=== PATIENT | female | born 1970 | race Hispanic/Latino ===

== ENCOUNTER 2021-04-25 07:39 | Day surgery (SDC) | payer BC ==
[2021-04-25] MEDS ORDERED: NA CHLORIDE 0.9% 250 ML ONE ×2 (08:23→14:10)
[2021-04-25 09:35] VITALS: O2SAT 100
[2021-04-25 09:39] VITALS: BMI 21.9
[2021-04-25] MEDS ORDERED: ACETAMINOPHEN 325 MG TABLET ONE (14:10)
[2021-04-25 15:55] VITALS: BP 122/51; TEMP 100.4
[2021-04-25 15:55] LABS: Absolute Lymphocytes (CBC) 0.6 K/uL (0.7-4.9); Basophils % 0.5 % (0-1.3); Hematocrit 28.2 % (36.0-45.0); Lymphocytes % 17.4 % (15.3-44.8); MPV 7.6 fL (7.6-11.3)
[2021-04-25 16:20] LABS: Dohle Bodies PRESENT; Platelet Estimate ADEQ; White Blood Cell Scan OK (OK)
[2021-04-25 16:21] LABS: Blood Morphology Comment NOT SEEN (NOT SEEN)
== END 2021-04-25 15:55 | disposition home or self-care (01) ==
LOC: DS 07:39
PROVIDERS: ATTEND Internal Medicine Hematology & Oncology
DX: D64.9 Anemia, unspecified (principal); C50.111 Malignant neoplasm of central portion of right female breast; D61.810 Antineoplastic chemotherapy induced pancytopenia
CPT/HCPCS: 85025; 36415; 86900; 86850; 86901; 36430; P9035; P9016 ×2; J7050 ×2

== ENCOUNTER 2021-06-25 09:04 | Day surgery (SDC) | payer BC ==
[2021-06-25] MEDS ORDERED: NA CHLORIDE 0.9% 250 ML ONE ×2 (10:04→13:30)
[2021-06-25 15:55] VITALS: BMI 21.9
[2021-06-25 15:56] VITALS: O2SAT 100
[2021-06-25 19:07] VITALS: BP 115/64; TEMP 98.7
[2021-06-25 19:14] LABS: Absolute Lymphocytes (CBC) 0.7 K/uL (0.7-4.9); Basophils % 1.2 % (0-1.3); Hematocrit 31.4 % (36.0-45.0); Lymphocytes % 28.4 % (15.3-44.8); MPV 9.4 fL (7.6-11.3); RBC Red Blood Cell Count 3.62 M/uL (3.86-4.86)
== END 2021-06-25 19:05 | disposition home or self-care (01) ==
LOC: DS 09:04
PROVIDERS: ATTEND Internal Medicine Hematology & Oncology
DX: D64.81 Anemia due to antineoplastic chemotherapy (principal); C50.111 Malignant neoplasm of central portion of right female breast
CPT/HCPCS: 85025; 36415; 86900; 86850; 86901; 36430; P9016 ×2; J7050 ×2